=== PATIENT | male | born 1945 | race Caucasian/White ===

== ENCOUNTER 2023-03-11 11:59 | Outpatient (CLI) | payer MEDICARE, OTHER ==
[~2023-03-11 11:59] MED LIST: Iopamidol 370 76% 100 ML VIAL ONE
== END 2023-03-11 12:00 | disposition home or self-care (01) ==
LOC: CSHCT 11:59
PROVIDERS: ATTEND Specialist
DX: I71.40 Abdominal aortic aneurysm, without rupture, unspecified (principal); Z98.890 Other specified postprocedural states; Z95.828 Presence of other vascular implants and grafts; K66.8 Other specified disorders of peritoneum; R19.00 Intra-abdominal and pelvic swelling, mass and lump, unspecified site; R19.09 Other intra-abdominal and pelvic swelling, mass and lump
CPT/HCPCS: 74174; 82565; Q9967

== ENCOUNTER 2023-07-06 14:47 | Emergency (ER) | payer MEDICARE, OTHER ==
[2023-07-06] MEDS ORDERED: Iopamidol 300 61% 100 ML VIAL FS ONE (15:04)
[2023-07-06 15:17] LABS: #Monocytes 0.6 10x3/uL (0.0-1.1); #Neutrophils 13.1 10x3/uL (1.5-8.4); %Basophils 0.1 % (0.0-2.0); %Eosinophils 0.1 % (0.0-6.0); %Lymphocytes 5.3 % (18.0-47.0); %Monocytes 4.4 % (0.0-10.0); %Neutrophils 89.6 % (40.0-75.0); Hematocrit 38.2 % (38.8-50.0); Hemoglobin 12.2 g/dL (13.5-17.5); Mean Corpuscular HGB CONC 31.9 g/dL (32.0-36.0); Mean Corpuscular Hemoglobin 29.5 pg (27.0-33.0); Mean Corpuscular Volume 92.5 fl (81.2-95.1); Platelet Count 191 10x3/uL (150-450); RBC Distribution Width 18.6 % (11.5-14.5); Red Blood Cell (RBC) Count 4.13 10x6/uL (4.32-5.72); White Blood Cell (WBC) Count 14.6 10x3/uL (3.5-10.5)
[2023-07-06 15:31] LABS: ALT (SGPT) 21 U/L (8-55); AST (SGOT) 11 U/L (5-34); Albumin 3.3 g/dL (3.4-4.8); Alkaline Phosphatase 73 U/L (40-110); Anion Gap 13 mmol/L (10-20); BUN (Urea Nitrogen) 24 mg/dL (8.4-25.7); Bilirubin, Total 0.8 mg/dL (0.2-1.2); Calc. Creatinine Clearance 0 mL/min (70-130); Carbon Dioxide 26 mmol/L (23-31); Chloride 99 mmol/L (98-107); Estimated GFR 43; Globulin 3.6 g/dL (2.4-3.5); Glucose 231 mg/dL (83-110); Potassium 4.4 mmol/L (3.5-5.1); Protein, Total 6.9 g/dL (5.8-8.1); Sodium 134 mmol/L (136-145)
[2023-07-06 16:10] LABS: SARS-CoV-2 NAA Rapid Test Not Detected (NotDetected)
[2023-07-06] MEDS ORDERED: Piperacillin/Tazobactam 4.5 GM VIAL ONE (16:30)
[2023-07-06] MEDS ORDERED: Vancomycin 1 GM VIAL ONE (16:30)
[2023-07-06 17:45] LABS: Bilirubin Neg (Negative); Blood, Urine 25 (Negative); Clarity Clear (Clear); Glucose, Urine (Dipstick) 50 mg/dL (Negative); Ketone, Urine Negative (Negative); Leukocyte Negative (Negative); Nitrite Negative (Negative); Protein, Urine (Dipstick) 30 mg/dl (Neg-Trace); Specific Gravity, Urine 1.005 (1.005-1.030)
[2023-07-06 17:52] LABS: Bacteria/HPF 3+ HPF (None Seen); CAUTI Indications for Culture Fever or rigors; Mucous/LPF Rare LPF (<2+); RBC/HPF 0-3 HPF (0-3); Squamous Epithelial 0-3 HPF (0-3); WBC/HPF 0-3 HPF (0-3)
[2023-07-06 17:53] LABS: Urine Culture Reflex No No
== END 2023-07-06 19:25 | disposition short-term general hospital (02) ==
LOC: CSHERS 14:47
DX: A41.9 Sepsis, unspecified organism (principal); N17.9 Acute kidney failure, unspecified; I77.0 Arteriovenous fistula, acquired; K68.9 Other disorders of retroperitoneum; I10 Essential (primary) hypertension; F17.210 Nicotine dependence, cigarettes, uncomplicated; Z20.822 Contact with and (suspected) exposure to COVID-19
CPT/HCPCS: 0240U; 71045; 74177; 80053; 81001; 83605; 85025; 87040; 93005; 96361; 96374; 96375; 99285; 36415; J2543; J3370; Q9967

== ENCOUNTER 2023-10-27 10:09 | Outpatient (CLI) | payer MEDICARE, OTHER | END 2023-10-27 10:10 | disposition home or self-care (01) | LOC: CSHCT 10:09 | PROVIDERS: ATTEND Specialist | DX: I77.2 Rupture of artery (principal); Z98.890 Other specified postprocedural states; R19.09 Other intra-abdominal and pelvic swelling, mass and lump | CPT/HCPCS: 74174; 82565 ==